=== PATIENT | female | born 1950 | race Caucasian/White ===

== ENCOUNTER 2018-01-07 07:13 | Inpatient (IN) | payer MEDICARE, OTHER ==
[2018-01-04 14:24] LABS: BASOPHILS # (AUTO) 0.1 (0.0-0.1); BASOPHILS % 1.4 % (0.0-1.0); EOSINOPHILS # (AUTO) 0.3 (0.0-0.4); HEMATOCRIT 43.2 % (34.2-44.1); HEMOGLOBIN 14.2 g/dL (12.0-16.0); LYMPHOCYTES # (AUTO) 2.9 (1.0-3.2); LYMPHOCYTES % 35.2 % (18.0-39.1); MEAN CORPUSCULAR HEMOGLOBIN 28.5 pg (28-32); MEAN CORPUSCULAR HGB CONC 32.9 g/dL (31-35); MEAN CORPUSCULAR VOLUME 86.7 fL (81-99); MONOCYTES # (AUTO) 0.8 (0.2-0.8); MONOCYTES % 9.2 % (4.4-11.3); NEUTROPHILS # (AUTO) 4.2 (2.1-6.9); PLATELET COUNT 289 x10e3/uL (140-360); RED BLOOD COUNT 4.98 x10e6/uL (3.6-5.1); RED CELL DISTRIBUTION WIDTH 16.1 % (11.7-14.4)
[~2018-01-07] VITALS: Ht 162.6 cm; Wt 70.3 kg
[~2018-01-07 07:13] MED LIST: AMITRIPTYLINE H10 MG PO; ASPIRIN325 MG PO; ASPIRIN81 MG PO; AZO STANDARD95 MG PO; BUPIVACAINE 7.5MG/ML /DEXTROSE 82.5MG/ML 2 ML AMP INJ ONE; CEFAZOLIN SOD 2 GM/D5W 50ML 50 ML IV ONE; CELEBREX100 MG PO; CELECOXIB 200 MG CAP ONE; CRESTOR10 MG PO; DEXAMETHASONE SOD PHOS 10 MG/1 ML VIAL ONE; GABAPENTIN 300 MG CAP ONE; LIPITOR80 MG PO; LISINOPRIL40 MG PO; NORCO 7.5-3251 EACH PO; NORVASC5 MG PO; PRILOSEC10 M1 PO; PROPRANOLOL HCL80 M1 PO; ROPIVACAINE 246.25 MG, EPINEPHRINE HCL 1:1000 0.5 MG, CLONIDINE HCL 0.08 MG, KETOROLAC ... INJ ONE; SOMA350 MG PO; XARELTO15 MG PO
--- OUTSIDE RECORDS SUMMARY | 2018-01-07 07:15 | XMS REPORT ---
Author Author [facility] Address Unknown Phone Unavailable Care Team Providers Care International Trade Compliance Manager Name Role Phone JULIA MESSINA Unavailable Unavailable Problems This patient has no known problems. Allergies, Adverse Reactions, Alerts This patient has no known allergies or adverse reactions. Medications This patient has no known medications. Results Test Description Test Time Test Comments Text Results Atomic Results Result Comments CHEST 2 VIEWS [place] [id number] [place] [id number] Patient Name: RENÉE KWON MR #: [id number] : 1950 Age/Sex: 66/F Req # : [id number] Adm Physician: Ordered by: JULIA MESSINA MD Report #: [id number] Location: OR Room/Bed: Procedure: [id number] DX/CHEST 2 VIEWS Exam Date: Exam Time: REPORT STATUS: Signed PROCEDURE: Frontal and lateral views of the chest. COMPARISON: Chest 2 views 08/21/2013. INDICATIONS: Preop evaluation. FINDINGS: Lines/tubes: None. Lungs: The lungs are well inflated and clear. There is no evidence of pneumonia or pulmonary edema. Pleura: There is no pleural effusion or pneumothorax. Heart and mediastinum: The heart and the mediastinum are normal. Atherosclerotic calcifications. Bones: No acute bony abnormality. Degenerative changes of the thoracic spine. IMPRESSION: No acute radiographic abnormality. Dictated by: Gadiel Spencer M.D. on 05/10/2017 at 14:26 Electronically approved by: Gadiel Spencer M.D. on 05/10/2017 at 14:26 Dictated By: GADIEL SPENCER MD 25 COPY TO: JULIA MESSINA MD
[2018-01-07] MEDS ORDERED: BACITRACIN 50,000 UNIT VIAL ONE (07:29)
[2018-01-07] MEDS ORDERED: HYDROGEN PEROXIDE 120 ML BTL ONE (07:29)
[2018-01-07] MEDS ORDERED: MUPIROCIN 2% OINT 22 GM TUBE ONE (07:29)
[2018-01-07] MEDS ORDERED: TRANEXAMIC ACID 1,000 MG/10 ML ML ONE (07:29)
[2018-01-07] MEDS: SODIUM CHLORIDE 0.9% 1000ML 1,000 ML IV SCH ×2 (08:48→15:13)
[2018-01-07] MEDS ORDERED: ACETAMINOPHEN 650 MG SUPP PR PRN (09:00)
[2018-01-07] MEDS ORDERED: HYDROCODONE/APAP 5MG-325MG TAB PO PRN (09:00)
[2018-01-07] MEDS ORDERED: DOCUSATE SODIUM 100 MG CAP PO PRN (09:00)
[2018-01-07] MEDS ORDERED: ONDANSETRON HCL INJ 2 MG/ML VIAL IV PRN (09:00)
[2018-01-07] MEDS ORDERED: KETOROLAC TROMETHAMINE 30 MG/ML VIAL IV PRN (09:00)
[2018-01-07] MEDS: CELECOXIB 100 MG CAP PO SCH ×2 (09:00→18:22)
[2018-01-07] MEDS ORDERED: DIPHENHYDRAMINE HCL INJ 50 MG/ML VIAL IM/IV PRN (09:00)
[2018-01-07] MEDS ORDERED: PROMETHAZINE HCL (IM) 25 MG/ML VIAL IM PRN (09:00)
[2018-01-07] MEDS: ASPIRIN 325 MG TAB PO SCH ×2 (09:00→18:22)
[2018-01-07] MEDS ORDERED: FENTANYL CITRATE/PF 100MCG/2 ML INJ ONE ×2 (09:49→14:43)
--- NOTE | 2018-01-07 10:09 | Operative Report ---
DATE OF PROCEDURE: January 07, 2018 SENIOR SALES OPERATIONS MANAGER: Jason Ames PA-C The patient was brought to the operating room for induction of anesthesia. Throughout this case, my PA's assistance was necessary for retraction of soft tissue and positioning of the extremity. This allows for efficient and technically successful execution of the operation and is considered medically necessary. PREOPERATIVE DIAGNOSIS: Osteoarthritis, right hip. POSTOPERATIVE DIAGNOSIS: Osteoarthritis, right hip. PROCEDURE: Right total hip arthroplasty. INDICATIONS: The patient is a 67-year-old lady who has end-stage arthritis of her right hip. She has failed conservative management and would like to proceed with a right total hip replacement. The risks and benefits have been reviewed. She has been through a left total hip replacement and has done well. She states she understands and wishes to proceed. DESCRIPTION OF PROCEDURE: The patient was brought to the operating room and given a spinal anesthetic. She received prophylactic antibiotics and tranexamic acid in the holding area. She was positioned in the left lateral decubitus position. Her right hip was prepped and draped in a sterile manner. A preoperative time out was performed. A limited incision posterior approach was made to the right hip. Care was taken to avoid injury to the sciatic nerve. A Charnley self-retaining retractor was placed. Hemostasis was obtained with electrocautery. The posterior capsule was carefully exposed, and the short external rotators and capsule were released. Further hemostasis was obtained with electrocautery. An oscillating saw was used to resect the femoral head. The head was inspected and noted to have complete loss of articular cartilage. Acetabular retractors were placed. Labral remnants were removed. The true floor of the acetabulum was established with a 46-mm reamer. The socket was then carefully reamed to 55 mm. This accomplished bleeding hemispherical cancellous bone. A small subchondral cyst was debrided in the superior dome of the acetabulum. The hip was thoroughly irrigated with a shower-tip pulsatile lavage. A portion of a 100 mL premixed pericapsular IDALMIS injection was placed into the surrounding soft tissue. A [place] 56 mm outer diameter Trident socket was then impacted into place. Excellent fixation was obtained. Fixation was augmented with a single 20-mm screw placed into the ilium. A highly crosslink polyethylene liner was then impacted into place. This had a 36 mm inner diameter and no posterior elevation. The socket was packed with a moistly soaked lap sponge, and attention was directed towards the proximal femur. A box cutting osteotome and taper pin reamer were used to establish entry into the femoral canal. The [place] 37.5-mm offset broaches were trialed. A #0 stem had good canal fill for trial reductions. The trial implants were then removed. The canal was thoroughly irrigated with a Pulsavac. A small bone plug was placed at roughly 160 mm down the canal. The canal was packed with moistly soaked peroxide sponges under suction, while 2 mixes of Simplex cement preloaded with antibiotics were prepared on the back table. The cement was inserted in a retrograde fashion and pressurized until about 6 minutes of cement time. The stem was seated to the predetermined level in about 15 degrees of anteversion. Once the cement had fully cured, repeat trial reductions were performed. A standard 36-mm head was felt to provide optimal soft-tissue balancing, stability and yazdanism of limb length. The implant was seated, and a final reduction was performed. The posterior capsule was well preserved and was easily repaired with #2 Ethibond. The gluteal fascia was closed with #2 Ethibond. Subcuticular Vicryl and edwin were used to close the skin. A sterile bandage was applied. She was returned to the supine position and transported to the recovery room in stable condition. Blood loss was approximately 50 mL, and all needle and sponge counts were correct. Job#: [id number]
[2018-01-07 11:09] VITALS: BP 127/71
[2018-01-07 11:10] VITALS: BP 127/71
--- NOTE | 2018-01-07 11:31 | Diagnostic Imaging Report ---
PELVIS AP 1-2 VIEWS - 1 view HISTORY: Pain COMPARISON: 08/25/2013 FINDINGS: Limited by body habitus. Postoperative changes of right hip arthroplasty with soft tissue swelling, emphysema, and overlying skin edwin. Nonspecific 3 mm lucency around the tip of the intramedullary femoral component of the right hip prosthesis. Left hip arthroplasty. There is unchanged lucency around the tip of the left femoral component of the prosthesis when compared to prior x-ray in 2013. Hardware are intact. IMPRESSION: Postoperative changes of right hip arthroplasty. Prior left hip arthroplasty, not significant interval change from prior x-ray. Signed by: Dr. Vince Ricks MD on 01/07/2018 11:28 AM
[2018-01-07] MEDS: ACETAMINOPHEN 1000 MG/100 ML IV SCH ×2 (11:54→18:00)
[2018-01-07 12:00] VITALS: BP 120/74
[2018-01-07] MEDS: HYDROCODONE/APAP 7.5MG-325MG 1 EA TAB PO PRN ×3 (13:35→22:24)
[2018-01-07] MEDS ORDERED: CEFAZOLIN SOD 1 GM/NS 50ML 50 ML IV SCH (14:00)
[2018-01-07] MEDS: CEFAZOLIN SOD 1 GM VIAL IV SCH ×2 (14:00→22:23)
[2018-01-07] MEDS ORDERED: MIDAZOLAM HCL 2 MG/2 ML VIAL ONE (14:43)
[2018-01-07 16:00] VITALS: BP 122/59
[2018-01-07] MEDS ORDERED: PROPOFOL IV EMULSION 10 MG/ML 20 ML VIAL ONE (17:42)
[2018-01-07] MEDS ORDERED: PROPRANOLOL HCL 80 MG PO SCH (19:00)
[2018-01-07] MEDS ORDERED: CELECOXIB 100 MG CAP PO PRN (19:00)
[2018-01-07] MEDS ORDERED: CARISOPRODOL 350 MG TAB PO PRN (19:00)
[2018-01-07 20:00] VITALS: BP 115/57
[2018-01-07] MEDS ORDERED: SIMVASTATIN 40 MG TAB PO SCH (21:00)
[2018-01-07] MEDS ORDERED: AMITRIPTYLINE HCL 10 MG TAB PO SCH (21:00)
[2018-01-07] MEDS ORDERED: ZOLPIDEM TARTRATE 5 MG TAB PO PRN (21:00)
[2018-01-07] MEDS: PROPRANOLOL HCL 80 MG CAPCR PO SCH (22:23)
[2018-01-08] VITALS: BP 116/59
[2018-01-08] MEDS: ACETAMINOPHEN 1000 MG/100 ML IV SCH ×2 (01:23→06:46)
[2018-01-08 04:00] VITALS: BP 122/58
[2018-01-08] MEDS: HYDROCODONE/APAP 7.5MG-325MG 1 EA TAB PO PRN ×2 (04:41→12:43)
[2018-01-08] MEDS: SODIUM CHLORIDE 0.9% 1000ML 1,000 ML IV SCH ×2 (04:48→14:48)
[2018-01-08] MEDS ORDERED: OMEPRAZOLE MAGNESIUM 20 MG PO SCH (06:30)
[2018-01-08] MEDS: CEFAZOLIN SOD 1 GM VIAL IV SCH (06:45)
[2018-01-08 07:04] LABS: HEMATOCRIT 33.3 % (34.2-44.1); HEMOGLOBIN 10.7 g/dL (12.0-16.0)
[2018-01-08] MEDS ORDERED: PANTOPRAZOLE SOD 40 MG TABEC PO SCH (07:30)
[2018-01-08] MEDS ORDERED: CELECOXIB 200 MG CAP PO SCH (08:00)
[2018-01-08 08:24] VITALS: BP 124/60
[2018-01-08] MEDS: ASPIRIN 325 MG TAB PO SCH (08:49)
[2018-01-08] MEDS: PROPRANOLOL HCL 80 MG CAPCR PO SCH (08:50)
[2018-01-08] MEDS ORDERED: ACETAMINOPHEN 1000 MG/100 ML IV PRN (09:00)
[2018-01-08 12:00] VITALS: BP 132/60
[2018-01-08] MEDS ORDERED: ENOXAPARIN SOD INJ 40 MG/0.4 ML SYR SC SCH (12:00)
[2018-01-08] MEDS ORDERED: AMLODIPINE BESYLATE 5 MG TAB PO SCH (12:00)
[2018-01-08 12:28] VITALS: BP 124/60
[2018-01-08] MEDS ORDERED: NON-FORMULARY MEDICATION (Lisinopril 40 MG) PO SCH (15:00)
[2018-01-08] MEDS ORDERED: LISINOPRIL 20 MG TAB PO SCH (15:00)
[2018-01-08] MEDS ORDERED: LOVENOX60 MG/0.6 SC (15:34)
[2018-01-08] MEDS ORDERED: NORCO 7.5-3251 EACH PO (15:35)
[2018-01-08] MEDS ORDERED: ONDANSETRON HCL 4 MG ORAL DISINTEGRATING TAB PO PRN (16:00)
[2018-01-08 16:19] VITALS: BP 139/64
== END 2018-01-08 15:50 | disposition home health service (06) | DRG 470 ==
LOC: OR 07:13 → MED/SURG 10:02
PROVIDERS: ADMIT Specialist; ATTEND Specialist
PROC: 0SR9049 Replacement of Right Hip Joint with Ceramic on Polyethylene Synthetic Substitute, Cemented, Open Approach (ICD-10-PCS; principal; 2018-01-07 07:19)
DX: M16.0 Bilateral primary osteoarthritis of hip (principal); D64.9 Anemia, unspecified; I10 Essential (primary) hypertension; G89.18 Other acute postprocedural pain; Z96.642 Presence of left artificial hip joint
CPT/HCPCS: 36415; 72170; 85014; 85018; 85025; 86850; 86900; 86920; C1713; J0171; J0690; J1100; J1650; J1885; J2250; J2795; J7030